=== PATIENT | male | born 1990 | race Two or more races ===

== ENCOUNTER 2024-09-10 19:36 | Emergency (ER) | payer OTHER ==
[~2024-09-10] VITALS: Ht 188 cm; Wt 103.4 kg
[2024-09-10] MEDS: HYDROcodone-ACET 5/325MG TAB PO ONE (22:32)
[2024-09-10] MEDS ORDERED: CEPH500C PO (23:55)
[2024-09-11 00:05] VITALS: BP 104/71; PULSE 54; RESP 16; TEMP 97.6; O2SAT 95
== END 2024-09-11 00:07 | disposition home or self-care (01) ==
LOC: ER 19:36
DX: S60.852A Superficial foreign body of left wrist, initial encounter (principal); J45.909 Unspecified asthma, uncomplicated; X58.XXXA Exposure to other specified factors, initial encounter; Y93.89 Activity, other specified; Y92.89 Other specified places as the place of occurrence of the external cause; Y99.8 Other external cause status
CPT/HCPCS: 73110